=== PATIENT | female | born 1945 | race Caucasian/White ===

== ENCOUNTER 2020-02-26 16:23 | Inpatient (IN) ==
[2020-02-26 17:30] LABS: Basophils % 0.6 %; Eosinophils % 2.6 %; Hematocrit 39.3 % (35.3-44.9)
[2020-02-26 17:32] LABS: Eosinophils # 0.2 K/mcL (0.0-0.6); Hemoglobin 12.7 g/dL (11.5-15.4); Immature Granulocytes % 0.1 % (0-4); Immature Platelets 15.2 % (1.1-6.1); Lymphocytes # 1.8 K/mcL (0.6-4.6); Lymphocytes % 24.8 %; Mean Corpuscular HGB Conc 32.3 g/dL (31.6-35.5); Mean Corpuscular Hemoglobin 31.9 pg (28.0-33.3); Mean Corpuscular Volume 98.7 fL (83.0-100.0); Mean Platelet Volume 13.5 fL (9.4-12.4); Monocytes # 0.8 K/mcL (0.0-1.3); Platelet Count 149 K/mcL (140-400); Red Blood Count 3.98 M/mcL (3.82-4.97); Red Cell Distribution Width 14.6 % (11.5-14.5); Segmented Neutrophils % 60.9 %; White Blood Count 7.3 K/mcL (4.3-11.1)
[2020-02-26 17:54] LABS: Albumin/Globulin Ratio 1.1 (1.1-2.2); Bilirubin,Total 0.7 mg/dL (0.3-1.0); Calcium 9.4 mg/dL (8.6-10.3); Globulin 3.5 g/dL (2.4-3.5); Potassium 2.7 mEq/L (3.5-5.1); Total Protein 7.5 g/dL (6.4-8.9); Troponin I 0.03 ng/mL (< 0.04)
[2020-02-26] MEDS ORDERED: Potassium Chloride Elixir 20 MEQ/15 ML UDC PO ONE (18:00)
[2020-02-26] MEDS ORDERED: 0.9 % Sodium Chloride 1,000 ML IVC ONE (18:02)
[2020-02-26 18:11] LABS: Neutrophils # 4.5 K/mcL (1.6-8.9)
[2020-02-26 18:12] LABS: Platelet Estimate Normal (Normal)
[2020-02-26 19:15] LABS: Bacteria,Urine Few per hpf (None-Few); Bilirubin,Urine Small (Negative); Blood,Urine Moderate (Negative); Clarity,Urine Turbid (Clear); Color,Urine Yellow (Yellow); Glucose,Urine (UA) Normal (Normal); Hyaline Casts,Urine Moderate per lpf (None Seen); Ketones,Urine Negative (Negative); Leukocyte Esterase,Urine Moderate (Negative); Mucus,Urine Few per lpf (None-Few); Nitrite,Urine Negative (Negative); Protein,Urine >=300 mg/dL (Neg-Trace); RBC,Urine 0-3 per hpf (0-3); Specific Gravity,Urine 1.021 (1.010-1.025); Squamous Epithelial Cell,Urine Few per hpf (None-Few); Urobilinogen,Urine Normal (Normal); WBC,Urine 30-50 per hpf (0-3)
[2020-02-26 19:19] LABS: Sodium, Urine 31.2 mEq/L
[2020-02-26] MEDS ORDERED: Naloxone 0.4 MG/ML INJ IVP PRN (20:34)
[2020-02-26] MEDS ORDERED: cefTRIAXone 1,000 MG in Water for inj. (sterile) 10 ML IVP ONE (20:44)
[2020-02-26] MEDS ORDERED: 0.9 % Sodium Chloride 1,000 ML IVC SCH (20:45)
[2020-02-26 21:33] LABS: Influenza A PCR Negative (Negative); Influenza B PCR Negative (Negative); Resp. Syncytial Virus PCR Negative (Negative)
[2020-02-26 21:36] LABS: SARS-CoV-2 by PCR (In House) Negative (Negative)
[2020-02-27 05:23] LABS: Hemoglobin 10.4 g/dL (11.5-15.4); Immature Platelets 16.9 % (1.1-6.1); Mean Corpuscular HGB Conc 31.5 g/dL (31.6-35.5); Mean Corpuscular Hemoglobin 31.4 pg (28.0-33.3); Mean Corpuscular Volume 99.7 fL (83.0-100.0); Mean Platelet Volume 13.5 fL (9.4-12.4); Red Blood Count 3.31 M/mcL (3.82-4.97); Red Cell Distribution Width 14.5 % (11.5-14.5); White Blood Count 6.5 K/mcL (4.3-11.1)
[2020-02-27 05:51] LABS: Calcium 8.4 mg/dL (8.6-10.3); Potassium 3.6 mEq/L (3.5-5.1)
[2020-02-27] MEDS ORDERED: D5% in Water 1,000 ML IVC PRN (07:44)
[2020-02-27] MEDS ORDERED: Dextrose Gel 15 GM/37.5 ML TUBE PO PRN ×2 (07:44)
[2020-02-27] MEDS ORDERED: *HR* Dextrose 50 % in Water (Vial) 50 ML VIAL IVP PRN (07:44)
[2020-02-27] MEDS: *HR* Rivaroxaban 10 MG TABLET PO SCH (08:05)
[2020-02-27] MEDS: Aspirin 81 MG TAB.CHEW PO SCH (08:05)
[2020-02-27] MEDS ORDERED: Magnesium Sulfate 1 GM/102 ML PIGGYBACK IVPB ONE (08:19)
[2020-02-27] MEDS: Insulin LISPRO 300 UNITS/3 ML VIAL SUBQ SCH ×4 (08:49→20:15)
[2020-02-27] MEDS ORDERED: amLODIPine 5 MG TABLET PO SCH (09:00)
[2020-02-27 10:18] LABS: Estimated Average Glucose 148 mg/dl; Hemoglobin A1C 6.8 %
[2020-02-27] MEDS: 0.9 % Sodium Chloride 1,000 ML IVC SCH ×2 (11:04→18:53)
[2020-02-27 13:00] LABS: Hematocrit 36.9 % (35.3-44.9); Hemoglobin 11.4 g/dL (11.5-15.4)
[2020-02-27] MEDS: (Omeprazole 10 MG) PO SCH (15:19)
[2020-02-27] MEDS ORDERED: 0.9 % Sodium Chloride 500 ML IVC ONE (17:37)
[2020-02-27] MEDS: cefTRIAXone 1,000 MG in 0.9 % Sodium Chloride Mini Bag 100 ML IVPB SCH (20:24)
[2020-02-27] MEDS ORDERED: *HR* HYDROcodone/Acet 5/325 mg TABLET PO ONE (23:24)
[2020-02-28 02:12] LABS: Hemoglobin 10.2 g/dL (11.5-15.4)
[2020-02-28 02:14] LABS: Basophils % 0.5 %; Eosinophils # 0.1 K/mcL (0.0-0.6); Eosinophils % 1.6 %; Hematocrit 33.7 % (35.3-44.9); Immature Granulocytes % 0.4 % (0-4); Immature Platelets 14.4 % (1.1-6.1); Lymphocytes # 1.5 K/mcL (0.6-4.6); Lymphocytes % 19.6 %; Mean Corpuscular HGB Conc 30.3 g/dL (31.6-35.5); Mean Corpuscular Volume 102.4 fL (83.0-100.0); Mean Platelet Volume 13.3 fL (9.4-12.4); Monocytes # 0.8 K/mcL (0.0-1.3); Monocytes % 10.1 %; Platelet Count 107 K/mcL (140-400); Red Blood Count 3.29 M/mcL (3.82-4.97); Red Cell Distribution Width 14.6 % (11.5-14.5); Segmented Neutrophils % 67.8 %; White Blood Count 7.4 K/mcL (4.3-11.1)
[2020-02-28 02:30] LABS: Calcium 8.4 mg/dL (8.6-10.3); Magnesium 1.5 mg/dL (1.6-2.6); Potassium 3.6 mEq/L (3.5-5.1)
[2020-02-28] MEDS: 0.9 % Sodium Chloride 1,000 ML IVC SCH ×2 (06:05→18:07)
[2020-02-28] MEDS: Aspirin 81 MG TAB.CHEW PO SCH (07:42)
[2020-02-28] MEDS: *HR* Rivaroxaban 10 MG TABLET PO SCH (07:42)
[2020-02-28] MEDS: Cholecalciferol (D-3) 1,000 UNIT (25MCG) TABLET PO SCH (07:43)
[2020-02-28] MEDS: (Omeprazole 10 MG) PO SCH (07:58)
[2020-02-28] MEDS: (Ezetimibe [Zetia] 10 MG) PO SCH (07:58)
[2020-02-28] MEDS: Insulin LISPRO 300 UNITS/3 ML VIAL SUBQ SCH ×4 (07:58→19:37)
[2020-02-28] MEDS ORDERED: Metoprolol 100 MG TABLET PO SCH (09:00)
[2020-02-28] MEDS: cefTRIAXone 1,000 MG in 0.9 % Sodium Chloride Mini Bag 100 ML IVPB SCH (19:37)
[2020-02-29] MEDS: 0.9 % Sodium Chloride 1,000 ML IVC SCH ×2 (05:17→20:30)
[2020-02-29 08:26] LABS: Basophils % 0.5 %; Immature Granulocytes % 0.3 % (0-4); Red Cell Distribution Width 15.1 % (11.5-14.5)
[2020-02-29 08:28] LABS: Eosinophils # 0.2 K/mcL (0.0-0.6); Eosinophils % 2.5 %; Hematocrit 30.8 % (35.3-44.9); Hemoglobin 9.4 g/dL (11.5-15.4); Immature Platelets 15.7 % (1.1-6.1); Lymphocytes # 1.5 K/mcL (0.6-4.6); Lymphocytes % 24.7 %; Mean Corpuscular HGB Conc 30.5 g/dL (31.6-35.5); Mean Corpuscular Hemoglobin 31.1 pg (28.0-33.3); Mean Platelet Volume 13.7 fL (9.4-12.4); Monocytes # 0.6 K/mcL (0.0-1.3); Monocytes % 10.3 %; Red Blood Count 3.02 M/mcL (3.82-4.97); Segmented Neutrophils % 61.7 %; White Blood Count 5.9 K/mcL (4.3-11.1)
[2020-02-29 08:32] LABS: Neutrophils # 3.6 K/mcL (1.6-8.9); Platelet Count 93 K/mcL (140-400)
[2020-02-29 08:42] LABS: % Iron Saturation 28 % (15-50); Iron 60 mcg/dL (50-170); Transferrin 153 mg/dL (203-362)
[2020-02-29 08:45] LABS: Calcium 8.5 mg/dL (8.6-10.3); Magnesium 1.8 mg/dL (1.6-2.6); Potassium 3.5 mEq/L (3.5-5.1)
[2020-02-29] MEDS: Insulin LISPRO 300 UNITS/3 ML VIAL SUBQ SCH ×4 (09:08→21:06)
[2020-02-29] MEDS: Aspirin 81 MG TAB.CHEW PO SCH (09:09)
[2020-02-29] MEDS: Cholecalciferol (D-3) 1,000 UNIT (25MCG) TABLET PO SCH (09:09)
[2020-02-29] MEDS: *HR* Rivaroxaban 10 MG TABLET PO SCH (09:09)
[2020-02-29 09:15] LABS: Platelet Estimate Slight Decrease (Normal)
[2020-02-29] MEDS: (Ezetimibe [Zetia] 10 MG) PO SCH (12:22)
[2020-02-29] MEDS: (Omeprazole 10 MG) PO SCH (12:22)
[2020-02-29] MEDS ORDERED: Sodium Bicarbonate 150 MEQ in Water for inj. (sterile) 1,000 ML IVC SCH (13:30)
[2020-02-29] MEDS ORDERED: 0.9 % Sodium Chloride 1,000 ML IVC SCH (13:31)
[2020-02-29] MEDS: cefTRIAXone 1,000 MG in 0.9 % Sodium Chloride Mini Bag 100 ML IVPB SCH (19:58)
[2020-02-29] MEDS ORDERED: *HR* HYDROcodone/Acet 5/325 mg TABLET PO PRN (21:00)
[2020-03-01 04:00] LABS: Eosinophils % 3.1 %; Mean Platelet Volume 13.8 fL (9.4-12.4); Red Blood Count 2.94 M/mcL (3.82-4.97)
[2020-03-01 04:02] LABS: Basophils % 0.6 %; Eosinophils # 0.2 K/mcL (0.0-0.6); Hematocrit 29.8 % (35.3-44.9); Hemoglobin 9.3 g/dL (11.5-15.4); Immature Granulocytes % 0.4 % (0-4); Immature Platelets 13.5 % (1.1-6.1); Lymphocytes # 1.7 K/mcL (0.6-4.6); Lymphocytes % 31.9 %; Mean Corpuscular HGB Conc 31.2 g/dL (31.6-35.5); Mean Corpuscular Hemoglobin 31.6 pg (28.0-33.3); Mean Corpuscular Volume 101.4 fL (83.0-100.0); Monocytes # 0.6 K/mcL (0.0-1.3); Monocytes % 10.3 %; Neutrophils # 2.9 K/mcL (1.6-8.9); Red Cell Distribution Width 14.9 % (11.5-14.5); Segmented Neutrophils % 53.7 %; White Blood Count 5.4 K/mcL (4.3-11.1)
[2020-03-01 04:06] LABS: Platelet Count 90 K/mcL (140-400)
[2020-03-01 04:23] LABS: BUN/Creatinine Ratio 11 (6-26); Blood Urea Nitrogen 11 mg/dL (8-23); Calcium 8.6 mg/dL (8.6-10.3); Carbon Dioxide 23 mEq/L (23-29); Chloride 113 mEq/L (98-107); Glucose 86 mg/dL (70-105); Osmolality,Calculated 299 (280-300); Phosphorous 2.3 mg/dL (2.7-4.5); Potassium 3.2 mEq/L (3.5-5.1); Sodium 145 mEq/L (136-145); eGFR For African Americans > 60 (> 60); eGFR For Non-African Americans 56 (> 60)
[2020-03-01] MEDS ORDERED: Potassium Chloride 20 MEQ, Lidocaine 1% 2 ML in 0.9 % Sodium Chloride 250 ML IVPB ONE (07:26)
[2020-03-01] MEDS: Aspirin 81 MG TAB.CHEW PO SCH (08:49)
[2020-03-01] MEDS: Insulin LISPRO 300 UNITS/3 ML VIAL SUBQ SCH ×2 (08:53→11:52)
[2020-03-01] MEDS: Cholecalciferol (D-3) 1,000 UNIT (25MCG) TABLET PO SCH (08:53)
[2020-03-01] MEDS: (Omeprazole 10 MG) PO SCH (08:54)
[2020-03-01] MEDS: (Ezetimibe [Zetia] 10 MG) PO SCH (08:54)
[2020-03-01] MEDS ORDERED: *HR* Rivaroxaban 10 MG TABLET PO SCH (09:00)
[2020-03-01 10:54] VITALS: BP 104/56
[2020-03-01 13:14] LABS: Hematocrit 35.6 % (35.3-44.9); Hemoglobin 10.9 g/dL (11.5-15.4)
== END 2020-03-01 17:45 | disposition home health service (06) | DRG 469 ==
LOC: 3BNU 16:23 → EMEROOARM 16:23 → SUATTDRO 21:45 → 3BNU 22:30
PROVIDERS: ADMIT Student in an Organized Health Care Education/Training Program; ATTEND Internal Medicine

== ENCOUNTER 2020-03-21 12:11 | Observation (INO) ==
[2020-03-21 12:33] LABS: Mean Corpuscular HGB Conc 31.6 g/dL (31.6-35.5); Red Cell Distribution Width 16.5 % (11.5-14.5)
[2020-03-21 12:35] LABS: Basophils % 0.4 %; Eosinophils % 0.6 %; Hematocrit 37.3 % (35.3-44.9); Hemoglobin 11.8 g/dL (11.5-15.4); Immature Granulocytes % 0.7 % (0-4); Immature Platelets 13.5 % (1.1-6.1); Lymphocytes % 27.4 %; Mean Corpuscular Hemoglobin 31.8 pg (28.0-33.3); Mean Corpuscular Volume 100.5 fL (83.0-100.0); Mean Platelet Volume 13.2 fL (9.4-12.4); Monocytes # 0.8 K/mcL (0.0-1.3); Monocytes % 11.4 %; Neutrophils # 4.3 K/mcL (1.6-8.9); Platelet Count 115 K/mcL (140-400); Red Blood Count 3.71 M/mcL (3.82-4.97); Segmented Neutrophils % 59.5 %; White Blood Count 7.2 K/mcL (4.3-11.1)
[2020-03-21 12:52] LABS: Alanine Aminotransferase 13 Units/L (7-52); Albumin 3.6 g/dL (3.5-5.7); Alkaline Phosphatase 67 Units/L (34-104); Aspartate Amino Transferase 24 Units/L (13-39); BUN/Creatinine Ratio 21 (6-26); Bilirubin,Total 0.8 mg/dL (0.3-1.0); Blood Urea Nitrogen 25 mg/dL (8-23); Calcium 9.8 mg/dL (8.6-10.3); Carbon Dioxide 17 mEq/L (23-29); Chloride 106 mEq/L (98-107); Globulin 3.6 g/dL (2.4-3.5); Glucose 91 mg/dL (70-105); Osmolality,Calculated 298 (280-300); Potassium 3.6 mEq/L (3.5-5.1); Sodium 142 mEq/L (136-145); Total Protein 7.2 g/dL (6.4-8.9); Troponin I < 0.03 ng/mL (< 0.04); eGFR For African Americans 55 (> 60); eGFR For Non-African Americans 45 (> 60)
[2020-03-21 12:58] LABS: Basophilic Stippling 1+ (Not Present); Burr Cells 1+ (Not Present); Poikilocytosis 1+ (Not Present)
[2020-03-21 12:59] LABS: Large Platelets Present (Not Present)
[2020-03-21] MEDS ORDERED: 0.9 % Sodium Chloride 500 ML IVC ONE (13:32)
[2020-03-21 13:43] LABS: Bacteria,Urine Few per hpf (None-Few); Bilirubin,Urine Small (Negative); Blood,Urine Moderate (Negative); Clarity,Urine Clear (Clear); Color,Urine Yellow (Yellow); Glucose,Urine (UA) Normal (Normal); Hyaline Casts,Urine Many per lpf (None Seen); Ketones,Urine 80 mg/dL (Negative); Leukocyte Esterase,Urine Negative (Negative); Mucus,Urine Few per lpf (None-Few); Nitrite,Urine Negative (Negative); Protein,Urine 200 mg/dL (Neg-Trace); RBC,Urine 0-3 per hpf (0-3); Specific Gravity,Urine 1.024 (1.010-1.025); Squamous Epithelial Cell,Urine Moderate per hpf (None-Few)
[2020-03-21] MEDS ORDERED: Naloxone 0.4 MG/ML INJ IVP PRN (15:24)
[2020-03-21] MEDS: Ringers Solution, Lactated 1,000 ML IVC SCH (18:48)
[2020-03-21] MEDS ORDERED: D5% in Water 1,000 ML IVC PRN (20:37)
[2020-03-21] MEDS ORDERED: Dextrose Gel 15 GM/37.5 ML TUBE PO PRN ×2 (20:37)
[2020-03-21] MEDS ORDERED: *HR* Dextrose 50 % in Water (Vial) 50 ML VIAL IVP PRN (20:37)
[2020-03-21] MEDS: Ondansetron 4 MG/2 ML VIAL IVP PRN (23:55)
[2020-03-22 05:56] LABS: Hemoglobin 9.1 g/dL (11.5-15.4)
[2020-03-22 05:58] LABS: Hematocrit 28.6 % (35.3-44.9)
[2020-03-22 05:59] LABS: Mean Corpuscular HGB Conc 31.8 g/dL (31.6-35.5)
[2020-03-22] MEDS ORDERED: Pantoprazole 40 MG VIAL IVP SCH (06:00)
[2020-03-22 06:01] LABS: Basophils % 0.8 %; Eosinophils % 0.6 %; Hematocrit 28.6 % (35.3-44.9); Hemoglobin 9.1 g/dL (11.5-15.4); Immature Granulocytes % 0.4 % (0-4); Immature Platelets 13.4 % (1.1-6.1); Lymphocytes # 1.4 K/mcL (0.6-4.6); Mean Corpuscular Hemoglobin 31.7 pg (28.0-33.3); Mean Corpuscular Volume 99.7 fL (83.0-100.0); Mean Platelet Volume 13.7 fL (9.4-12.4); Monocytes # 0.7 K/mcL (0.0-1.3); Monocytes % 12.2 %; Neutrophils # 3.1 K/mcL (1.6-8.9); Red Blood Count 2.87 M/mcL (3.82-4.97); Red Cell Distribution Width 16.5 % (11.5-14.5); White Blood Count 5.3 K/mcL (4.3-11.1)
[2020-03-22 06:05] LABS: Platelet Count 82 K/mcL (140-400)
[2020-03-22 06:41] LABS: BUN/Creatinine Ratio 22 (6-26); Blood Urea Nitrogen 21 mg/dL (8-23); Calcium 8.5 mg/dL (8.6-10.3); Carbon Dioxide 20 mEq/L (23-29); Chloride 108 mEq/L (98-107); Glucose 104 mg/dL (70-105); Osmolality,Calculated 291 (280-300); Potassium 3.5 mEq/L (3.5-5.1); Sodium 139 mEq/L (136-145); eGFR For African Americans > 60 (> 60); eGFR For Non-African Americans 56 (> 60)
[2020-03-22 09:38] LABS: INR 1.2; Prothrombin Time 13.8 Seconds (9.4-12.1)
[2020-03-22 09:52] LABS: % Iron Saturation 35 % (15-50); Iron 71 mcg/dL (50-170); Transferrin 144 mg/dL (203-362)
[2020-03-22 10:11] LABS: Ferritin 177 ng/mL (10-120)
[2020-03-22 10:16] LABS: Folate 2.3 ng/mL (3.0-16.0)
[2020-03-22] MEDS: Pantoprazole 40 MG in 0.9 % Sodium Chloride Mini Bag 100 ML IVC SCH ×3 (10:35→21:18)
[2020-03-22] MEDS: Ringers Solution, Lactated 1,000 ML IVC SCH (10:36)
[2020-03-22 15:20] LABS: Hematocrit 29.7 % (35.3-44.9); Hemoglobin 9.5 g/dL (11.5-15.4)
[2020-03-22] MEDS: Ondansetron 4 MG/2 ML VIAL IVP PRN (16:24)
[2020-03-22] MEDS ORDERED: Ringers Solution, Lactated 500 ML IVC ONE (17:09)
[2020-03-23] MEDS: Ondansetron 4 MG/2 ML VIAL IVP PRN (02:35)
[2020-03-23] MEDS: Ringers Solution, Lactated 1,000 ML IVC SCH ×2 (02:36→16:30)
[2020-03-23] MEDS: Pantoprazole 40 MG in 0.9 % Sodium Chloride Mini Bag 100 ML IVC SCH ×3 (02:36→13:45)
[2020-03-23 03:59] LABS: Basophils % 0.5 %; Eosinophils # 0.1 K/mcL (0.0-0.6); Eosinophils % 0.9 %; Hematocrit 29.7 % (35.3-44.9); Hemoglobin 9.4 g/dL (11.5-15.4); Immature Granulocytes % 0.4 % (0-4); Immature Platelets 13.9 % (1.1-6.1); Lymphocytes # 1.2 K/mcL (0.6-4.6); Lymphocytes % 21.9 %; Mean Corpuscular HGB Conc 31.6 g/dL (31.6-35.5); Mean Corpuscular Hemoglobin 31.5 pg (28.0-33.3); Mean Corpuscular Volume 99.7 fL (83.0-100.0); Mean Platelet Volume 13.9 fL (9.4-12.4); Monocytes # 0.6 K/mcL (0.0-1.3); Monocytes % 11.2 %; Neutrophils # 3.7 K/mcL (1.6-8.9); Platelet Count 78 K/mcL (140-400); Red Blood Count 2.98 M/mcL (3.82-4.97); Red Cell Distribution Width 16.6 % (11.5-14.5); Segmented Neutrophils % 65.1 %; White Blood Count 5.6 K/mcL (4.3-11.1)
[2020-03-23 04:01] LABS: INR 1.2; Prothrombin Time 14.1 Seconds (9.4-12.1)
[2020-03-23 04:16] LABS: BUN/Creatinine Ratio 17 (6-26); Blood Urea Nitrogen 14 mg/dL (8-23); Calcium 8.6 mg/dL (8.6-10.3); Carbon Dioxide 22 mEq/L (23-29); Chloride 110 mEq/L (98-107); Glucose 82 mg/dL (70-105); Osmolality,Calculated 290 (280-300); Potassium 2.9 mEq/L (3.5-5.1); Sodium 140 mEq/L (136-145); eGFR For African Americans > 60 (> 60); eGFR For Non-African Americans > 60 (> 60)
[2020-03-23] MEDS ORDERED: Potassium Chloride 40 MEQ, Lidocaine 1% 2 ML in 0.9 % Sodium Chloride 500 ML IVPB ONE (07:46)
[2020-03-23] MEDS ORDERED: Lidocaine -MPF 2% 2 ML VIAL ONE (10:26)
[2020-03-23] MEDS ORDERED: *HR* Propofol 200 MG/20 ML VIAL IVP ONE (10:27)
[2020-03-23] MEDS: Pantoprazole 40 MG VIAL IVP SCH (18:02)
[2020-03-24 04:15] LABS: Basophils % 0.6 %; Eosinophils # 0.1 K/mcL (0.0-0.6); Eosinophils % 2.1 %; Hematocrit 27.3 % (35.3-44.9); Hemoglobin 8.7 g/dL (11.5-15.4); Immature Granulocytes % 0.6 % (0-4); Immature Platelets 14.2 % (1.1-6.1); Lymphocytes # 1.1 K/mcL (0.6-4.6); Lymphocytes % 22.2 %; Mean Corpuscular HGB Conc 31.9 g/dL (31.6-35.5); Mean Corpuscular Volume 100.4 fL (83.0-100.0); Monocytes # 0.5 K/mcL (0.0-1.3); Monocytes % 9.8 %; Neutrophils # 3.1 K/mcL (1.6-8.9); Red Blood Count 2.72 M/mcL (3.82-4.97); Red Cell Distribution Width 16.9 % (11.5-14.5); Segmented Neutrophils % 64.7 %; White Blood Count 4.8 K/mcL (4.3-11.1)
[2020-03-24 04:16] LABS: BUN/Creatinine Ratio 15 (6-26); Blood Urea Nitrogen 12 mg/dL (8-23); Calcium 8.4 mg/dL (8.6-10.3); Carbon Dioxide 24 mEq/L (23-29); Chloride 112 mEq/L (98-107); Glucose 80 mg/dL (70-105); Osmolality,Calculated 297 (280-300); Potassium 3.2 mEq/L (3.5-5.1); Sodium 144 mEq/L (136-145); eGFR For African Americans > 60 (> 60); eGFR For Non-African Americans > 60 (> 60)
[2020-03-24 04:21] LABS: Platelet Count 71 K/mcL (140-400)
[2020-03-24] MEDS: Ringers Solution, Lactated 1,000 ML IVC SCH ×2 (05:15→18:53)
[2020-03-24] MEDS: Pantoprazole 40 MG VIAL IVP SCH ×2 (05:16→17:48)
[2020-03-24] MEDS: Ondansetron 4 MG/2 ML VIAL IVP PRN (10:01)
[2020-03-24 12:57] LABS: Hematocrit 30.6 % (35.3-44.9); Hemoglobin 9.7 g/dL (11.5-15.4)
[2020-03-24] MEDS: Cyanocobalamin (B-12) 1,000 MCG TABLET PO SCH (17:48)
[2020-03-24] MEDS: Folic Acid 1 MG TABLET PO SCH (17:48)
[2020-03-24] MEDS ORDERED: *HR* HYDROcodone/Acet 5/325 mg TABLET PO PRN (19:52)
[2020-03-25 00:47] LABS: Mean Corpuscular Hemoglobin 30.9 pg (28.0-33.3)
[2020-03-25 00:49] LABS: Basophils % 0.7 %; Eosinophils # 0.2 K/mcL (0.0-0.6); Eosinophils % 2.5 %; Hematocrit 26.4 % (35.3-44.9); Hemoglobin 8.2 g/dL (11.5-15.4); Immature Granulocytes % 0.7 % (0-4); Immature Platelets 16.6 % (1.1-6.1); Lymphocytes # 1.4 K/mcL (0.6-4.6); Lymphocytes % 23.4 %; Mean Corpuscular HGB Conc 31.1 g/dL (31.6-35.5); Mean Corpuscular Volume 99.6 fL (83.0-100.0); Mean Platelet Volume 13.9 fL (9.4-12.4); Monocytes # 0.6 K/mcL (0.0-1.3); Monocytes % 9.5 %; Neutrophils # 3.7 K/mcL (1.6-8.9); Red Blood Count 2.65 M/mcL (3.82-4.97); Red Cell Distribution Width 17.1 % (11.5-14.5); Segmented Neutrophils % 63.2 %; White Blood Count 5.9 K/mcL (4.3-11.1)
[2020-03-25 00:51] LABS: Platelet Count 64 K/mcL (140-400)
[2020-03-25 01:06] LABS: BUN/Creatinine Ratio 14 (6-26); Blood Urea Nitrogen 11 mg/dL (8-23); Calcium 8.3 mg/dL (8.6-10.3); Carbon Dioxide 23 mEq/L (23-29); Chloride 110 mEq/L (98-107); Glucose 77 mg/dL (70-105); Osmolality,Calculated 292 (280-300); Potassium 3.3 mEq/L (3.5-5.1); Sodium 142 mEq/L (136-145); eGFR For African Americans > 60 (> 60); eGFR For Non-African Americans > 60 (> 60)
[2020-03-25] MEDS: Pantoprazole 40 MG VIAL IVP SCH ×2 (05:36→17:30)
[2020-03-25] MEDS: Cyanocobalamin (B-12) 1,000 MCG TABLET PO SCH (07:46)
[2020-03-25] MEDS: Folic Acid 1 MG TABLET PO SCH (07:46)
[2020-03-25] MEDS: Ringers Solution, Lactated 1,000 ML IVC SCH ×4 (07:47→22:39)
[2020-03-25 10:54] LABS: Hematocrit 28.1 % (35.3-44.9); Hemoglobin 8.7 g/dL (11.5-15.4)
[2020-03-25] MEDS: Ondansetron 4 MG/2 ML VIAL IVP PRN (11:54)
[2020-03-25] MEDS: *HR* Rivaroxaban 10 MG TABLET PO SCH (13:12)
[2020-03-25] MEDS: Aspirin 81 MG TAB.CHEW PO SCH (13:13)
[2020-03-25] MEDS: Pantoprazole 40 MG in 0.9 % Sodium Chloride Mini Bag 100 ML IVC SCH (22:39)
[2020-03-26 05:08] LABS: Red Cell Distribution Width 17.2 % (11.5-14.5)
[2020-03-26 05:10] LABS: Hematocrit 27.3 % (35.3-44.9); Hemoglobin 8.4 g/dL (11.5-15.4); Immature Platelets 18.5 % (1.1-6.1); Mean Corpuscular HGB Conc 30.8 g/dL (31.6-35.5); Mean Corpuscular Hemoglobin 30.8 pg (28.0-33.3); Mean Platelet Volume 13.7 fL (9.4-12.4); Red Blood Count 2.73 M/mcL (3.82-4.97); White Blood Count 6.3 K/mcL (4.3-11.1)
[2020-03-26] MEDS: Pantoprazole 40 MG VIAL IVP SCH (05:20)
[2020-03-26] MEDS: Ringers Solution, Lactated 1,000 ML IVC SCH (05:20)
[2020-03-26 05:29] LABS: BUN/Creatinine Ratio 13 (6-26); Blood Urea Nitrogen 9 mg/dL (8-23); Calcium 8.5 mg/dL (8.6-10.3); Carbon Dioxide 26 mEq/L (23-29); Chloride 110 mEq/L (98-107); Glucose 85 mg/dL (70-105); Osmolality,Calculated 292 (280-300); Potassium 3.4 mEq/L (3.5-5.1); Sodium 142 mEq/L (136-145); eGFR For African Americans > 60 (> 60); eGFR For Non-African Americans > 60 (> 60)
[2020-03-26 07:11] VITALS: BP 130/85
[2020-03-26] MEDS: *HR* Rivaroxaban 10 MG TABLET PO SCH (07:51)
[2020-03-26] MEDS: Folic Acid 1 MG TABLET PO SCH (07:51)
[2020-03-26] MEDS: Aspirin 81 MG TAB.CHEW PO SCH (07:51)
[2020-03-26] MEDS: Cyanocobalamin (B-12) 1,000 MCG TABLET PO SCH (07:51)
[2020-03-26] MEDS: Potassium Chloride Elixir 20 MEQ/15 ML UDC PO ONE ×2 (07:57→09:49)
[2020-03-26] MEDS ORDERED: Ondansetron ODT 4 MG TAB.RAPDIS SL PRN (08:05)
[2020-03-26 08:11] LABS: Magnesium 1.6 mg/dL (1.6-2.6); Phosphorous 1.7 mg/dL (2.7-4.5)
== END 2020-03-26 13:02 | disposition home health service (06) ==
LOC: 3ANU 12:11 → EMEROOARM 12:11 → SUATTDRO 15:27 → 3ANU 16:42
PROVIDERS: ADMIT Internal Medicine; ATTEND Family Medicine

== ENCOUNTER 2020-04-06 12:54 | Observation (INO) ==
[2020-04-06 13:52] LABS: Basophils % 0.3 %; Eosinophils # 0.1 K/mcL (0.0-0.6); Eosinophils % 1.5 %; Hematocrit 31.2 % (35.3-44.9); Hemoglobin 9.9 g/dL (11.5-15.4); Immature Granulocytes % 0.8 % (0-4); Lymphocytes # 0.6 K/mcL (0.6-4.6); Lymphocytes % 9.6 %; Mean Corpuscular HGB Conc 31.7 g/dL (31.6-35.5); Mean Corpuscular Hemoglobin 30.9 pg (28.0-33.3); Mean Corpuscular Volume 97.5 fL (83.0-100.0); Mean Platelet Volume 12.1 fL (9.4-12.4); Monocytes # 0.6 K/mcL (0.0-1.3); Monocytes % 9.3 %; Neutrophils # 5.1 K/mcL (1.6-8.9); Platelet Count 169 K/mcL (140-400); Segmented Neutrophils % 78.5 %; White Blood Count 6.5 K/mcL (4.3-11.1)
[2020-04-06 14:12] LABS: Bacteria,Urine Many per hpf (None-Few); Bilirubin,Urine Small (Negative); Blood,Urine Moderate (Negative); Clarity,Urine Ex.Turbid (Clear); Color,Urine Dark-Orange (Yellow); Glucose,Urine (UA) Normal (Normal); Ketones,Urine 80 mg/dL (Negative); Leukocyte Esterase,Urine Large (Negative); Mucus,Urine Few per lpf (None-Few); Nitrite,Urine Negative (Negative); PH,Urine 6.5 pH Units (5.0-8.0); Protein,Urine 200 mg/dL (Neg-Trace); RBC,Urine 30-50 per hpf (0-3); Specific Gravity,Urine 1.021 (1.010-1.025); Squamous Epithelial Cell,Urine Few per hpf (None-Few); Urobilinogen,Urine >=8.0 mg/dL (Normal); WBC,Urine TNTC per hpf (0-3)
[2020-04-06] MEDS ORDERED: cefTRIAXone 1,000 MG in 0.9 % Sodium Chloride Mini Bag 100 ML IVPB ONE (14:13)
[2020-04-06 14:21] LABS: Activated Partial Thrombo Time 23.1 Seconds (26.0-36.0); INR 1.7; Prothrombin Time 19.3 Seconds (9.4-12.1)
[2020-04-06 14:33] LABS: Alanine Aminotransferase 7 Units/L (7-52); Albumin 3.1 g/dL (3.5-5.7); Albumin/Globulin Ratio 1.1 (1.1-2.2); Alkaline Phosphatase 49 Units/L (34-104); Aspartate Amino Transferase 15 Units/L (13-39); BUN/Creatinine Ratio 20 (6-26); Bilirubin,Direct 0.2 mg/dL (0.0-0.2); Bilirubin,Indirect 0.6 mg/dL (0.0-1.0); Bilirubin,Total 0.8 mg/dL (0.3-1.0); Blood Urea Nitrogen 14 mg/dL (8-23); Calcium 8.5 mg/dL (8.6-10.3); Carbon Dioxide 21 mEq/L (23-29); Chloride 101 mEq/L (98-107); Globulin 2.7 g/dL (2.4-3.5); Glucose 119 mg/dL (70-105); Lipase 54 Units/L (11-82); Osmolality,Calculated 294 (280-300); Potassium 2.7 mEq/L (3.5-5.1); Sodium 141 mEq/L (136-145); Total Protein 5.8 g/dL (6.4-8.9); eGFR For African Americans > 60 (> 60); eGFR For Non-African Americans > 60 (> 60)
[2020-04-06] MEDS ORDERED: Potassium Chloride 40 MEQ, Lidocaine 1% 2 ML in 0.9 % Sodium Chloride 500 ML IVPB ONE (15:04)
[2020-04-06] MEDS ORDERED: Dextrose Gel 15 GM/37.5 ML TUBE PO PRN ×2 (16:04)
[2020-04-06] MEDS ORDERED: Naloxone 0.4 MG/ML INJ IVP PRN (16:04)
[2020-04-06] MEDS ORDERED: D5% in Water 1,000 ML IVC PRN (16:04)
[2020-04-06] MEDS ORDERED: *HR* Dextrose 50 % in Water (Vial) 50 ML VIAL IVP PRN (16:04)
[2020-04-06] MEDS ORDERED: 0.9 % Sodium Chloride 1,000 ML IVC SCH ×2 (16:15→21:00)
[2020-04-06] MEDS: carvediloL 25 MG TABLET PO SCH (16:26)
[2020-04-06] MEDS: Insulin LISPRO 300 UNITS/3 ML VIAL SUBQ SCH ×2 (16:46→21:42)
[2020-04-06] MEDS: *HR* HYDROcodone/Acet 5/325 mg TABLET PO PRN (22:37)
[2020-04-07] MEDS: Ondansetron 4 MG/2 ML VIAL IVP PRN (03:26)
[2020-04-07 04:37] LABS: Basophils % 0.3 %; Eosinophils % 0.7 %; Hematocrit 30.2 % (35.3-44.9); Hemoglobin 9.6 g/dL (11.5-15.4); Immature Granulocytes % 0.8 % (0-4); Lymphocytes # 0.7 K/mcL (0.6-4.6); Lymphocytes % 12.1 %; Mean Corpuscular HGB Conc 31.8 g/dL (31.6-35.5); Mean Corpuscular Hemoglobin 31.4 pg (28.0-33.3); Mean Corpuscular Volume 98.7 fL (83.0-100.0); Mean Platelet Volume 12.5 fL (9.4-12.4); Monocytes # 0.8 K/mcL (0.0-1.3); Monocytes % 12.3 %; Neutrophils # 4.5 K/mcL (1.6-8.9); Platelet Count 166 K/mcL (140-400); Red Blood Count 3.06 M/mcL (3.82-4.97); Red Cell Distribution Width 17.3 % (11.5-14.5); Segmented Neutrophils % 73.8 %; White Blood Count 6.1 K/mcL (4.3-11.1)
[2020-04-07 05:00] LABS: Alanine Aminotransferase 6 Units/L (7-52); Albumin 3.1 g/dL (3.5-5.7); Albumin/Globulin Ratio 1.2 (1.1-2.2); Alkaline Phosphatase 45 Units/L (34-104); Aspartate Amino Transferase 12 Units/L (13-39); BUN/Creatinine Ratio 23 (6-26); Bilirubin,Total 0.6 mg/dL (0.3-1.0); Blood Urea Nitrogen 15 mg/dL (8-23); Calcium 8.1 mg/dL (8.6-10.3); Carbon Dioxide 22 mEq/L (23-29); Chloride 105 mEq/L (98-107); Globulin 2.5 g/dL (2.4-3.5); Glucose 88 mg/dL (70-105); Osmolality,Calculated 294 (280-300); Potassium 3.1 mEq/L (3.5-5.1); Sodium 142 mEq/L (136-145); Total Protein 5.6 g/dL (6.4-8.9); eGFR For African Americans > 60 (> 60); eGFR For Non-African Americans > 60 (> 60)
[2020-04-07] MEDS ORDERED: Potassium Effervescent 25 MEQ TABLET.EFF PO ONE (07:23)
[2020-04-07] MEDS: Insulin LISPRO 300 UNITS/3 ML VIAL SUBQ SCH ×4 (08:24→20:27)
[2020-04-07] MEDS: carvediloL 25 MG TABLET PO SCH ×2 (09:01→17:11)
[2020-04-07] MEDS: Aspirin 81 MG TAB.CHEW PO SCH (09:03)
[2020-04-07] MEDS: Cholecalciferol (D-3) 1,000 UNIT (25MCG) TABLET PO SCH (09:03)
[2020-04-07] MEDS: Cyanocobalamin (B-12) 1,000 MCG TABLET PO SCH (09:03)
[2020-04-07] MEDS: *HR* Rivaroxaban 10 MG TABLET PO SCH (09:18)
[2020-04-07] MEDS: cefTRIAXone 1,000 MG in Water for inj. (sterile) 10 ML IVP SCH (15:49)
[2020-04-07] MEDS: Megestrol Acetate 400 MG/10 ML UDC PO SCH (17:25)
[2020-04-07] MEDS ORDERED: NON-FORMULARY MEDICATION 1 EACH EACH (Ezetimibe [Zetia] 10 MG Tablet) PO SCH (18:00)
[2020-04-07] MEDS: *HR* HYDROcodone/Acet 5/325 mg TABLET PO PRN (19:40)
[2020-04-08] MEDS: Ondansetron 4 MG/2 ML VIAL IVP PRN (01:04)
[2020-04-08] MEDS: *HR* HYDROcodone/Acet 5/325 mg TABLET PO PRN ×2 (01:43→19:40)
[2020-04-08 05:24] LABS: Basophils % 0.6 %; Eosinophils # 0.2 K/mcL (0.0-0.6); Eosinophils % 2.8 %; Hematocrit 27.2 % (35.3-44.9); Hemoglobin 8.6 g/dL (11.5-15.4); Immature Granulocytes % 0.4 % (0-4); Lymphocytes # 1.1 K/mcL (0.6-4.6); Lymphocytes % 21.4 %; Mean Corpuscular HGB Conc 31.6 g/dL (31.6-35.5); Mean Corpuscular Hemoglobin 31.4 pg (28.0-33.3); Mean Corpuscular Volume 99.3 fL (83.0-100.0); Mean Platelet Volume 12.8 fL (9.4-12.4); Monocytes # 0.6 K/mcL (0.0-1.3); Monocytes % 11.4 %; Neutrophils # 3.4 K/mcL (1.6-8.9); Platelet Count 134 K/mcL (140-400); Red Blood Count 2.74 M/mcL (3.82-4.97); Red Cell Distribution Width 17.9 % (11.5-14.5); Segmented Neutrophils % 63.4 %; White Blood Count 5.3 K/mcL (4.3-11.1)
[2020-04-08 05:43] LABS: BUN/Creatinine Ratio 27 (6-26); Blood Urea Nitrogen 16 mg/dL (8-23); Carbon Dioxide 25 mEq/L (23-29); Chloride 107 mEq/L (98-107); Glucose 76 mg/dL (70-105); Osmolality,Calculated 294 (280-300); Potassium 3.2 mEq/L (3.5-5.1); Sodium 142 mEq/L (136-145); eGFR For African Americans > 60 (> 60); eGFR For Non-African Americans > 60 (> 60)
[2020-04-08] MEDS ORDERED: Potassium Effervescent 25 MEQ TABLET.EFF PO ONE (07:43)
[2020-04-08] MEDS: carvediloL 25 MG TABLET PO SCH ×2 (08:07→16:30)
[2020-04-08] MEDS: Insulin LISPRO 300 UNITS/3 ML VIAL SUBQ SCH ×4 (08:11→21:27)
[2020-04-08] MEDS: Cyanocobalamin (B-12) 1,000 MCG TABLET PO SCH (08:41)
[2020-04-08] MEDS: *HR* Rivaroxaban 10 MG TABLET PO SCH (08:41)
[2020-04-08] MEDS: Folic Acid 1 MG TABLET PO SCH (08:41)
[2020-04-08] MEDS: Aspirin 81 MG TAB.CHEW PO SCH (08:41)
[2020-04-08] MEDS: Megestrol Acetate 400 MG/10 ML UDC PO SCH (08:41)
[2020-04-08] MEDS: Cholecalciferol (D-3) 1,000 UNIT (25MCG) TABLET PO SCH (08:41)
[2020-04-08] MEDS: cefTRIAXone 1,000 MG in Water for inj. (sterile) 10 ML IVP SCH (15:15)
[2020-04-08] MEDS: Acetaminophen 325 MG TABLET PO PRN (18:52)
[2020-04-09] MEDS: *HR* HYDROcodone/Acet 5/325 mg TABLET PO PRN ×2 (01:45→19:35)
[2020-04-09] MEDS: Ondansetron 4 MG/2 ML VIAL IVP PRN (04:26)
[2020-04-09] MEDS: Megestrol Acetate 400 MG/10 ML UDC PO SCH (08:26)
[2020-04-09] MEDS: carvediloL 25 MG TABLET PO SCH ×2 (08:27→18:09)
[2020-04-09] MEDS: Aspirin 81 MG TAB.CHEW PO SCH (08:27)
[2020-04-09] MEDS: *HR* Rivaroxaban 10 MG TABLET PO SCH (08:28)
[2020-04-09] MEDS: Cholecalciferol (D-3) 1,000 UNIT (25MCG) TABLET PO SCH (08:28)
[2020-04-09] MEDS: Folic Acid 1 MG TABLET PO SCH (08:29)
[2020-04-09] MEDS: Cyanocobalamin (B-12) 1,000 MCG TABLET PO SCH (08:29)
[2020-04-09 08:35] LABS: Basophils % 0.5 %; Eosinophils # 0.3 K/mcL (0.0-0.6); Eosinophils % 4.5 %; Hematocrit 31.9 % (35.3-44.9); Immature Granulocytes % 0.6 % (0-4); Lymphocytes # 0.8 K/mcL (0.6-4.6); Lymphocytes % 12.5 %; Mean Corpuscular HGB Conc 31.3 g/dL (31.6-35.5); Mean Corpuscular Hemoglobin 31.2 pg (28.0-33.3); Mean Corpuscular Volume 99.4 fL (83.0-100.0); Mean Platelet Volume 12.5 fL (9.4-12.4); Monocytes # 0.8 K/mcL (0.0-1.3); Monocytes % 11.6 %; Neutrophils # 4.7 K/mcL (1.6-8.9); Platelet Count 145 K/mcL (140-400); Red Blood Count 3.21 M/mcL (3.82-4.97); Red Cell Distribution Width 17.5 % (11.5-14.5); Segmented Neutrophils % 70.3 %; White Blood Count 6.7 K/mcL (4.3-11.1)
[2020-04-09] MEDS: Insulin LISPRO 300 UNITS/3 ML VIAL SUBQ SCH ×4 (08:36→20:43)
[2020-04-09 10:52] LABS: BUN/Creatinine Ratio 22 (6-26); Blood Urea Nitrogen 14 mg/dL (8-23); Calcium 8.3 mg/dL (8.6-10.3); Carbon Dioxide 24 mEq/L (23-29); Chloride 104 mEq/L (98-107); Glucose 89 mg/dL (70-105); Osmolality,Calculated 286 (280-300); Potassium 3.8 mEq/L (3.5-5.1); Sodium 138 mEq/L (136-145); eGFR For African Americans > 60 (> 60); eGFR For Non-African Americans > 60 (> 60)
[2020-04-09] MEDS: cefTRIAXone 1,000 MG in Water for inj. (sterile) 10 ML IVP SCH (14:38)
[2020-04-09] MEDS ORDERED: Ondansetron ODT 4 MG TAB.RAPDIS SL ONE (14:45)
[2020-04-10 00:41] LABS: INR 1.9
[2020-04-10 00:42] LABS: Basophils % 0.6 %; Eosinophils # 0.3 K/mcL (0.0-0.6); Eosinophils % 4.3 %; Hematocrit 28.6 % (35.3-44.9); Hemoglobin 9.1 g/dL (11.5-15.4); Immature Granulocytes % 0.6 % (0-4); Lymphocytes # 1.2 K/mcL (0.6-4.6); Mean Corpuscular HGB Conc 31.8 g/dL (31.6-35.5); Mean Corpuscular Hemoglobin 31.2 pg (28.0-33.3); Mean Corpuscular Volume 97.9 fL (83.0-100.0); Mean Platelet Volume 12.5 fL (9.4-12.4); Monocytes # 0.8 K/mcL (0.0-1.3); Monocytes % 12.2 %; Platelet Count 133 K/mcL (140-400); Red Blood Count 2.92 M/mcL (3.82-4.97); Red Cell Distribution Width 17.4 % (11.5-14.5); Segmented Neutrophils % 63.3 %; White Blood Count 6.3 K/mcL (4.3-11.1)
[2020-04-10 00:47] LABS: BUN/Creatinine Ratio 19 (6-26); Blood Urea Nitrogen 13 mg/dL (8-23); Calcium 8.4 mg/dL (8.6-10.3); Carbon Dioxide 22 mEq/L (23-29); Chloride 106 mEq/L (98-107); Glucose 78 mg/dL (70-105); Osmolality,Calculated 287 (280-300); Potassium 3.9 mEq/L (3.5-5.1); Sodium 139 mEq/L (136-145); eGFR For African Americans > 60 (> 60); eGFR For Non-African Americans > 60 (> 60)
[2020-04-10] MEDS: *HR* HYDROcodone/Acet 5/325 mg TABLET PO PRN ×3 (01:37→22:02)
[2020-04-10] MEDS: Insulin LISPRO 300 UNITS/3 ML VIAL SUBQ SCH ×4 (07:58→21:47)
[2020-04-10] MEDS: Aspirin 81 MG TAB.CHEW PO SCH (08:06)
[2020-04-10] MEDS: Cholecalciferol (D-3) 1,000 UNIT (25MCG) TABLET PO SCH (08:58)
[2020-04-10] MEDS: carvediloL 25 MG TABLET PO SCH ×2 (08:59→17:21)
[2020-04-10] MEDS: Megestrol Acetate 400 MG/10 ML UDC PO SCH (09:00)
[2020-04-10] MEDS: Folic Acid 1 MG TABLET PO SCH (09:01)
[2020-04-10] MEDS: Cyanocobalamin (B-12) 1,000 MCG TABLET PO SCH (09:01)
[2020-04-10] MEDS: *HR* Heparin 5,000 UNIT/ML VIAL SQ SCH ×2 (14:57→21:47)
[2020-04-10] MEDS: cefTRIAXone 1,000 MG in Water for inj. (sterile) 10 ML IVP SCH (14:58)
[2020-04-11] MEDS: Ondansetron 4 MG/2 ML VIAL IVP PRN ×2 (01:06→09:24)
[2020-04-11] MEDS: *HR* Heparin 5,000 UNIT/ML VIAL SQ SCH ×3 (05:21→20:37)
[2020-04-11] MEDS: Insulin LISPRO 300 UNITS/3 ML VIAL SUBQ SCH ×4 (07:59→20:36)
[2020-04-11] MEDS: Cyanocobalamin (B-12) 1,000 MCG TABLET PO SCH (09:19)
[2020-04-11] MEDS: Aspirin 81 MG TAB.CHEW PO SCH (09:19)
[2020-04-11] MEDS: Folic Acid 1 MG TABLET PO SCH (09:19)
[2020-04-11] MEDS: Cholecalciferol (D-3) 1,000 UNIT (25MCG) TABLET PO SCH (09:19)
[2020-04-11] MEDS: carvediloL 25 MG TABLET PO SCH ×2 (09:20→17:41)
[2020-04-11] MEDS: cefTRIAXone 1,000 MG in Water for inj. (sterile) 10 ML IVP SCH (15:52)
[2020-04-11] MEDS: *HR* HYDROcodone/Acet 5/325 mg TABLET PO PRN (20:36)
[2020-04-12] MEDS: *HR* Heparin 5,000 UNIT/ML VIAL SQ SCH ×3 (05:35→20:02)
[2020-04-12] MEDS: Insulin LISPRO 300 UNITS/3 ML VIAL SUBQ SCH ×4 (08:34→20:08)
[2020-04-12] MEDS: Ondansetron 4 MG/2 ML VIAL IVP PRN ×2 (08:51→20:02)
[2020-04-12] MEDS: Aspirin 81 MG TAB.CHEW PO SCH (08:51)
[2020-04-12] MEDS: carvediloL 6.25 MG TABLET PO SCH ×2 (08:51→16:34)
[2020-04-12] MEDS: Folic Acid 1 MG TABLET PO SCH (08:51)
[2020-04-12] MEDS: Cholecalciferol (D-3) 1,000 UNIT (25MCG) TABLET PO SCH (08:51)
[2020-04-12] MEDS: Cyanocobalamin (B-12) 1,000 MCG TABLET PO SCH (08:52)
[2020-04-12] MEDS: Potassium Chloride Elixir 20 MEQ/15 ML UDC PO SCH (08:52)
[2020-04-12] MEDS: cefTRIAXone 1,000 MG in Water for inj. (sterile) 10 ML IVP SCH (14:49)
[2020-04-12] MEDS: Acetaminophen 325 MG TABLET PO PRN (23:55)
[2020-04-13] MEDS: *HR* Heparin 5,000 UNIT/ML VIAL SQ SCH (06:30)
[2020-04-13 07:00] VITALS: BP 103/65
[2020-04-13] MEDS: Cholecalciferol (D-3) 1,000 UNIT (25MCG) TABLET PO SCH (08:06)
[2020-04-13] MEDS: Aspirin 81 MG TAB.CHEW PO SCH (08:06)
[2020-04-13] MEDS: carvediloL 6.25 MG TABLET PO SCH (08:06)
[2020-04-13] MEDS: Cyanocobalamin (B-12) 1,000 MCG TABLET PO SCH (08:07)
[2020-04-13] MEDS: Insulin LISPRO 300 UNITS/3 ML VIAL SUBQ SCH ×2 (08:07→12:32)
[2020-04-13] MEDS: Folic Acid 1 MG TABLET PO SCH (08:07)
[2020-04-13] MEDS: Potassium Chloride Elixir 20 MEQ/15 ML UDC PO SCH (08:07)
== END 2020-04-13 14:04 | disposition home health service (06) ==
LOC: 3ANU 12:54 → EMEROOARM 12:54 → SUATTDRO 14:48 → 3ANU 15:40
PROVIDERS: ADMIT Internal Medicine; ATTEND Student in an Organized Health Care Education/Training Program

== ENCOUNTER 2020-04-18 13:59 | Inpatient (IN) ==
[2020-04-18] MEDS ORDERED: 0.9 % Sodium Chloride 1,000 ML IVC ONE (14:07)
[2020-04-18] MEDS ORDERED: Ondansetron 4 MG/2 ML VIAL IVP ONE (14:10)
[2020-04-18 14:55] LABS: Basophils # 0.1 K/mcL (0.0-0.2); Basophils % 0.5 %; Eosinophils # 0.1 K/mcL (0.0-0.6); Eosinophils % 0.5 %; Hematocrit 37.6 % (35.3-44.9); Hemoglobin 12.2 g/dL (11.5-15.4); Immature Granulocytes % 0.6 % (0-4); Lymphocytes # 0.8 K/mcL (0.6-4.6); Lymphocytes % 6.9 %; Mean Corpuscular HGB Conc 32.4 g/dL (31.6-35.5); Mean Corpuscular Volume 95.7 fL (83.0-100.0); Mean Platelet Volume 12.9 fL (9.4-12.4); Monocytes % 8.7 %; Neutrophils # 9.1 K/mcL (1.6-8.9); Nucleated Red Blood Cells 0.2 /100 WBC (0); Platelet Count 130 K/mcL (140-400); Red Blood Count 3.93 M/mcL (3.82-4.97); Red Cell Distribution Width 17.4 % (11.5-14.5); Segmented Neutrophils % 82.8 %
[2020-04-18 15:03] LABS: INR 1.5; Prothrombin Time 16.8 Seconds (9.4-12.1)
[2020-04-18] MEDS ORDERED: levoFLOXacin 750 MG/150 ML 750 MG/150 ML BAG IVPB ONE (15:08)
[2020-04-18 15:21] LABS: Alanine Aminotransferase 8 Units/L (7-52); Albumin 3.5 g/dL (3.5-5.7); Albumin/Globulin Ratio 1.1 (1.1-2.2); Alkaline Phosphatase 56 Units/L (34-104); Aspartate Amino Transferase 14 Units/L (13-39); BUN/Creatinine Ratio 23 (6-26); Bilirubin,Direct 0.3 mg/dL (0.0-0.2); Bilirubin,Indirect 0.6 mg/dL (0.0-1.0); Bilirubin,Total 0.9 mg/dL (0.3-1.0); Blood Urea Nitrogen 27 mg/dL (8-23); Calcium 9.5 mg/dL (8.6-10.3); Carbon Dioxide 17 mEq/L (23-29); Chloride 103 mEq/L (98-107); Globulin 3.2 g/dL (2.4-3.5); Glucose 159 mg/dL (70-105); Magnesium 1.7 mg/dL (1.6-2.6); Osmolality,Calculated 306 (280-300); Phosphorous 2.2 mg/dL (2.7-4.5); Potassium 2.9 mEq/L (3.5-5.1); Sodium 144 mEq/L (136-145); Total Protein 6.7 g/dL (6.4-8.9); Troponin I 0.07 ng/mL (< 0.04); eGFR For African Americans 55 (> 60); eGFR For Non-African Americans 45 (> 60)
[2020-04-18 15:23] LABS: Activated Partial Thrombo Time 20.3 Seconds (26.0-36.0)
[2020-04-18 15:31] LABS: Bilirubin,Urine Small (Negative); Blood,Urine Moderate (Negative); Clarity,Urine Turbid (Clear); Color,Urine Yellow (Yellow); Glucose,Urine (UA) Normal (Normal); Ketones,Urine 40 mg/dL (Negative); Leukocyte Esterase,Urine Negative (Negative); Mucus,Urine Many per lpf (None-Few); Nitrite,Urine Negative (Negative); PH,Urine 6.5 pH Units (5.0-8.0); Protein,Urine >=300 mg/dL (Neg-Trace); RBC,Urine 30-50 per hpf (0-3); Renal Epithelial Cells,Urine Few per hpf (None-Few); Specific Gravity,Urine 1.025 (1.010-1.025); Squamous Epithelial Cell,Urine Moderate per hpf (None-Few); WBC,Urine 15-30 per hpf (0-3)
[2020-04-18] MEDS ORDERED: Naloxone 0.4 MG/ML INJ IVP PRN (16:37)
[2020-04-18] MEDS ORDERED: Ondansetron 4 MG/2 ML VIAL IVP PRN (16:37)
[2020-04-18] MEDS ORDERED: Melatonin 3 MG TABLET PO PRN (16:37)
[2020-04-18 17:46] LABS: Acetaminophen < 10 mcg/mL (10-20); Salicylate < 2.5 mg/dL (15.0-30.0); Thyroid Stimulating Hormone 0.458 mcIU/mL (0.340-5.600)
[2020-04-18] MEDS: cefTRIAXone 2,000 MG in Water for inj. (sterile) 20 ML IVP SCH (17:54)
[2020-04-18] MEDS: 0.9 % Sodium Chloride w KCl 20 MEQ/1,000 ML MLS IVC SCH (17:56)
[2020-04-18 18:38] LABS: VBG HCO3 23 mEq/L (21-27); VBG PCO2 45 mmHg (41-51); VBG PH 7.31 pH Units (7.32-7.42); VBG PO2 29 mmHg (25-50)
[2020-04-18] MEDS: Metoclopramide 10 MG/2 ML VIAL IVP SCH (20:30)
[2020-04-18] MEDS ORDERED: Potassium Phosphate 44 MEQ in 0.9 % Sodium Chloride 250 ML IVPB ONE (22:00)
[2020-04-19] MEDS: 0.9 % Sodium Chloride w KCl 20 MEQ/1,000 ML MLS IVC SCH (03:35)
[2020-04-19 06:05] LABS: Red Blood Count 3.24 M/mcL (3.82-4.97); Segmented Neutrophils % 79.1 %
[2020-04-19 06:07] LABS: Basophils % 0.2 %; Hematocrit 31.6 % (35.3-44.9); Immature Granulocytes % 0.5 % (0-4); Immature Platelets 11.8 % (1.1-6.1); Lymphocytes # 0.8 K/mcL (0.6-4.6); Lymphocytes % 8.6 %; Mean Corpuscular HGB Conc 31.6 g/dL (31.6-35.5); Mean Corpuscular Hemoglobin 30.9 pg (28.0-33.3); Mean Corpuscular Volume 97.5 fL (83.0-100.0); Mean Platelet Volume 12.4 fL (9.4-12.4); Monocytes # 1.1 K/mcL (0.0-1.3); Monocytes % 11.6 %; Neutrophils # 7.4 K/mcL (1.6-8.9); White Blood Count 9.3 K/mcL (4.3-11.1)
[2020-04-19 06:23] LABS: Anisocytosis 1+ (Not Present); Platelet Count 89 K/mcL (140-400); Platelet Estimate Slight Decrease (Normal)
[2020-04-19] MEDS: Metoclopramide 10 MG/2 ML VIAL IVP SCH ×2 (08:03→21:20)
[2020-04-19] MEDS ORDERED: Pantoprazole 40 MG VIAL IVP SCH (09:00)
[2020-04-19 09:09] LABS: Amphetamine Screen,Urine Negative ng/mL (Cutoff=1000); Barbiturate Screen,Urine Negative ng/mL (Cutoff=200); Benzodiazepines Screen,Urine Negative ng/mL (Cutoff=200); Cannabinoid Screen,Urine Negative ng/mL (Cutoff = 50); Cocaine Screen,Urine Negative ng/mL (Cutoff= 300); Phencyclidine Screen,Urine Negative ng/mL (Cutoff=25)
[2020-04-19 09:26] LABS: Opiate Screen,Urine Positive ng/mL (Cutoff=300)
[2020-04-19 10:26] LABS: BUN/Creatinine Ratio 30 (6-26); Blood Urea Nitrogen 31 mg/dL (8-23); Calcium 8.3 mg/dL (8.6-10.3); Carbon Dioxide 15 mEq/L (23-29); Chloride 114 mEq/L (98-107); Glucose 113 mg/dL (70-105); Osmolality,Calculated 309 (280-300); Potassium 3.9 mEq/L (3.5-5.1); Sodium 146 mEq/L (136-145); eGFR For African Americans > 60 (> 60); eGFR For Non-African Americans 53 (> 60)
[2020-04-19] MEDS ORDERED: Ondansetron 4 MG/2 ML VIAL IVP PRN (11:47)
[2020-04-19] MEDS: Megestrol Acetate 400 MG/10 ML UDC PO SCH (12:46)
[2020-04-19] MEDS: cefTRIAXone 2,000 MG in Water for inj. (sterile) 20 ML IVP SCH (17:23)
[2020-04-19] MEDS: carvediloL 25 MG TABLET PO SCH (17:26)
[2020-04-20 03:15] LABS: Hematocrit 27.1 % (35.3-44.9); Hemoglobin 8.6 g/dL (11.5-15.4); Mean Corpuscular HGB Conc 31.7 g/dL (31.6-35.5); Mean Corpuscular Hemoglobin 30.8 pg (28.0-33.3); Mean Corpuscular Volume 97.1 fL (83.0-100.0); Mean Platelet Volume 12.7 fL (9.4-12.4); Red Blood Count 2.79 M/mcL (3.82-4.97); Red Cell Distribution Width 18.3 % (11.5-14.5); White Blood Count 8.5 K/mcL (4.3-11.1)
[2020-04-20 03:17] LABS: Platelet Count 85 K/mcL (140-400)
[2020-04-20 03:30] LABS: BUN/Creatinine Ratio 36 (6-26); Blood Urea Nitrogen 34 mg/dL (8-23); Calcium 8.4 mg/dL (8.6-10.3); Carbon Dioxide 19 mEq/L (23-29); Chloride 116 mEq/L (98-107); Glucose 124 mg/dL (70-105); Osmolality,Calculated 313 (280-300); Potassium 3.2 mEq/L (3.5-5.1); Sodium 147 mEq/L (136-145); eGFR For African Americans > 60 (> 60); eGFR For Non-African Americans 58 (> 60)
[2020-04-20] MEDS ORDERED: Potassium Chloride Elixir 20 MEQ/15 ML UDC PO ONE ×2 (07:19→07:22)
[2020-04-20] MEDS ORDERED: Aspirin 81 MG TAB.CHEW PO SCH (09:00)
[2020-04-20] MEDS ORDERED: *HR* Rivaroxaban 15 MG TABLET PO SCH (09:00)
[2020-04-20] MEDS ORDERED: Perflutren Lipid Microsphere 1.3 ML in 0.9 % Sodium Chloride 8.7 ML IVP PRN (09:08)
[2020-04-20] MEDS: Metoclopramide 10 MG/2 ML VIAL IVP SCH ×2 (09:13→19:54)
[2020-04-20] MEDS: carvediloL 25 MG TABLET PO SCH ×2 (09:13→17:45)
[2020-04-20] MEDS: Megestrol Acetate 400 MG/10 ML UDC PO SCH (09:15)
[2020-04-20] MEDS: Cyanocobalamin (B-12) 1,000 MCG TABLET PO SCH (09:15)
[2020-04-20] MEDS: Folic Acid 1 MG TABLET PO SCH (09:15)
[2020-04-20] MEDS ORDERED: Potassium Chloride 20 MEQ in D5% in Water 1,000 ML IVC SCH (11:00)
[2020-04-20] MEDS ORDERED: Gadolinium Contrast Agent (WT Based) IV PRN (12:25)
[2020-04-20] MEDS: *HR* Heparin 5,000 UNIT/ML VIAL SQ SCH ×2 (17:46→21:09)
[2020-04-21 02:26] LABS: Eosinophils % 0.6 %
[2020-04-21 02:28] LABS: Basophils % 0.4 %; Hematocrit 27.3 % (35.3-44.9); Hemoglobin 8.6 g/dL (11.5-15.4); Lymphocytes # 0.8 K/mcL (0.6-4.6); Mean Corpuscular HGB Conc 31.5 g/dL (31.6-35.5); Mean Corpuscular Hemoglobin 30.7 pg (28.0-33.3); Mean Corpuscular Volume 97.5 fL (83.0-100.0); Mean Platelet Volume 13.5 fL (9.4-12.4); Monocytes # 0.6 K/mcL (0.0-1.3); Monocytes % 8.8 %; Neutrophils # 5.3 K/mcL (1.6-8.9); Nucleated Red Blood Cells 0.3 /100 WBC (0); Red Cell Distribution Width 18.6 % (11.5-14.5); Segmented Neutrophils % 77.2 %; White Blood Count 6.8 K/mcL (4.3-11.1)
[2020-04-21 02:44] LABS: BUN/Creatinine Ratio 42 (6-26); Blood Urea Nitrogen 34 mg/dL (8-23); Calcium 8.2 mg/dL (8.6-10.3); Carbon Dioxide 21 mEq/L (23-29); Chloride 117 mEq/L (98-107); Glucose 136 mg/dL (70-105); Osmolality,Calculated 314 (280-300); Potassium 3.2 mEq/L (3.5-5.1); Sodium 147 mEq/L (136-145); eGFR For African Americans > 60 (> 60); eGFR For Non-African Americans > 60 (> 60)
[2020-04-21 03:13] LABS: Platelet Count 74 K/mcL (140-400)
[2020-04-21] MEDS: *HR* Heparin 5,000 UNIT/ML VIAL SQ SCH (05:29)
[2020-04-21] MEDS: carvediloL 25 MG TABLET PO SCH ×2 (09:13→16:45)
[2020-04-21] MEDS: Cyanocobalamin (B-12) 1,000 MCG TABLET PO SCH (09:13)
[2020-04-21] MEDS: Metoclopramide 10 MG/2 ML VIAL IVP SCH (09:14)
[2020-04-21] MEDS: Megestrol Acetate 400 MG/10 ML UDC PO SCH (09:14)
[2020-04-21] MEDS: Folic Acid 1 MG TABLET PO SCH (09:14)
[2020-04-22 04:26] LABS: Basophils % 0.3 %; Immature Granulocytes % 1.3 % (0-4)
[2020-04-22 04:28] LABS: Eosinophils # 0.3 K/mcL (0.0-0.6); Eosinophils % 4.4 %; Hematocrit 28.5 % (35.3-44.9); Hemoglobin 9.3 g/dL (11.5-15.4); Immature Platelets 11.4 % (1.1-6.1); Lymphocytes # 0.6 K/mcL (0.6-4.6); Lymphocytes % 9.4 %; Mean Corpuscular HGB Conc 32.6 g/dL (31.6-35.5); Mean Corpuscular Hemoglobin 31.5 pg (28.0-33.3); Mean Corpuscular Volume 96.6 fL (83.0-100.0); Mean Platelet Volume 12.9 fL (9.4-12.4); Monocytes # 0.6 K/mcL (0.0-1.3); Monocytes % 9.4 %; Neutrophils # 4.6 K/mcL (1.6-8.9); Nucleated Red Blood Cells 0.3 /100 WBC (0); Red Blood Count 2.95 M/mcL (3.82-4.97); Red Cell Distribution Width 18.6 % (11.5-14.5); Segmented Neutrophils % 75.2 %; White Blood Count 6.1 K/mcL (4.3-11.1)
[2020-04-22 04:29] LABS: Platelet Count 87 K/mcL (140-400)
[2020-04-22 04:45] LABS: Alanine Aminotransferase 13 Units/L (7-52); Albumin 2.9 g/dL (3.5-5.7); Albumin/Globulin Ratio 1.1 (1.1-2.2); Alkaline Phosphatase 42 Units/L (34-104); Aspartate Amino Transferase 22 Units/L (13-39); BUN/Creatinine Ratio 41 (6-26); Bilirubin,Total 0.7 mg/dL (0.3-1.0); Blood Urea Nitrogen 30 mg/dL (8-23); Calcium 8.3 mg/dL (8.6-10.3); Carbon Dioxide 23 mEq/L (23-29); Chloride 117 mEq/L (98-107); Globulin 2.6 g/dL (2.4-3.5); Glucose 123 mg/dL (70-105); Osmolality,Calculated 316 (280-300); Potassium 3.2 mEq/L (3.5-5.1); Sodium 149 mEq/L (136-145); Total Protein 5.5 g/dL (6.4-8.9); eGFR For African Americans > 60 (> 60); eGFR For Non-African Americans > 60 (> 60)
[2020-04-22] MEDS: Megestrol Acetate 400 MG/10 ML UDC PO SCH (09:31)
[2020-04-22] MEDS: carvediloL 25 MG TABLET PO SCH ×2 (09:32→17:43)
[2020-04-22] MEDS: Folic Acid 1 MG TABLET PO SCH (09:32)
[2020-04-22] MEDS: Cyanocobalamin (B-12) 1,000 MCG TABLET PO SCH (09:32)
[2020-04-22] MEDS ORDERED: Potassium Chloride 40 MEQ, Lidocaine 1% 2 ML in 0.9 % Sodium Chloride 500 ML IVPB ONE (11:15)
[2020-04-22 11:41] LABS: Magnesium 1.5 mg/dL (1.6-2.6); Phosphorous 1.2 mg/dL (2.7-4.5)
[2020-04-22 12:18] LABS: Red Blood Cell,CSF 67000 RBC/mcL
[2020-04-22 12:19] LABS: Appearance,CSF Bloody (Clear)
[2020-04-22 12:24] LABS: Glucose,CSF 56 mg/dL (40-70); Total Protein,CSF > 200 mg/dL (15-45)
[2020-04-22 15:14] LABS: Basophils,CSF 0 %; Eosinophils,CSF 0 %; Monocytes,CSF 0 %
[2020-04-23 06:05] LABS: Hematocrit 28.7 % (35.3-44.9); Immature Platelets 9.4 % (1.1-6.1); Mean Corpuscular HGB Conc 31.4 g/dL (31.6-35.5); Mean Corpuscular Hemoglobin 30.6 pg (28.0-33.3); Mean Corpuscular Volume 97.6 fL (83.0-100.0); Mean Platelet Volume 12.6 fL (9.4-12.4); Red Blood Count 2.94 M/mcL (3.82-4.97); Red Cell Distribution Width 18.4 % (11.5-14.5); White Blood Count 6.5 K/mcL (4.3-11.1)
[2020-04-23 08:21] LABS: BUN/Creatinine Ratio 39 (6-26); Blood Urea Nitrogen 26 mg/dL (8-23); Calcium 8.1 mg/dL (8.6-10.3); Carbon Dioxide 22 mEq/L (23-29); Chloride 119 mEq/L (98-107); Glucose 110 mg/dL (70-105); Osmolality,Calculated 317 (280-300); Phosphorous 1.3 mg/dL (2.7-4.5); Potassium 3.5 mEq/L (3.5-5.1); Sodium 151 mEq/L (136-145); eGFR For African Americans > 60 (> 60); eGFR For Non-African Americans > 60 (> 60)
[2020-04-23] MEDS: Megestrol Acetate 400 MG/10 ML UDC PO SCH (08:44)
[2020-04-23] MEDS: carvediloL 25 MG TABLET PO SCH ×2 (08:44→15:00)
[2020-04-23] MEDS: Folic Acid 1 MG TABLET PO SCH (08:44)
[2020-04-23] MEDS: Cyanocobalamin (B-12) 1,000 MCG TABLET PO SCH (08:44)
[2020-04-23] MEDS ORDERED: Potassium Phosphate 44 MEQ in 0.9 % Sodium Chloride 250 ML IVPB ONE (10:06)
[2020-04-23] MEDS: 0.9 % Sodium Chloride 250 ML IVC ONE (10:51)
[2020-04-23 12:15] LABS: BUN/Creatinine Ratio 36 (6-26); Blood Urea Nitrogen 25 mg/dL (8-23); Carbon Dioxide 21 mEq/L (23-29); Chloride 120 mEq/L (98-107); Glucose 112 mg/dL (70-105); Osmolality,Calculated 313 (280-300); Potassium 3.6 mEq/L (3.5-5.1); Sodium 149 mEq/L (136-145); eGFR For African Americans > 60 (> 60); eGFR For Non-African Americans > 60 (> 60)
[2020-04-23] MEDS: Thiamine (B-1) 500 MG in 0.9 % Sodium Chloride 50 ML IVPB SCH ×2 (14:50→21:32)
[2020-04-23] MEDS: 0.9 % Sodium Chloride 1,000 ML IVC SCH (15:59)
[2020-04-23] MEDS: *HR* Metoprolol 5 MG/5 ML VIAL IVP SCH ×2 (17:36→18:53)
[2020-04-23] MEDS ORDERED: *HR* Metoprolol 5 MG/5 ML VIAL IVP SCH (18:00)
[2020-04-23 18:46] LABS: BUN/Creatinine Ratio 40 (6-26); Blood Urea Nitrogen 27 mg/dL (8-23); Calcium 7.8 mg/dL (8.6-10.3); Carbon Dioxide 23 mEq/L (23-29); Chloride 119 mEq/L (98-107); Glucose 106 mg/dL (70-105); Osmolality,Calculated 318 (280-300); Potassium 3.7 mEq/L (3.5-5.1); Sodium 151 mEq/L (136-145); eGFR For African Americans > 60 (> 60); eGFR For Non-African Americans > 60 (> 60)
[2020-04-24] MEDS: *HR* Metoprolol 5 MG/5 ML VIAL IVP SCH ×4 (00:05→18:11)
[2020-04-24] MEDS: 0.9 % Sodium Chloride 1,000 ML IVC SCH (01:49)
[2020-04-24 02:45] LABS: Hematocrit 28.3 % (35.3-44.9); Hemoglobin 8.6 g/dL (11.5-15.4); Immature Platelets 11.1 % (1.1-6.1); Mean Corpuscular HGB Conc 30.4 g/dL (31.6-35.5); Mean Corpuscular Hemoglobin 30.9 pg (28.0-33.3); Mean Corpuscular Volume 101.8 fL (83.0-100.0); Mean Platelet Volume 13.3 fL (9.4-12.4); Red Blood Count 2.78 M/mcL (3.82-4.97); Red Cell Distribution Width 18.6 % (11.5-14.5); White Blood Count 7.9 K/mcL (4.3-11.1)
[2020-04-24 03:05] LABS: BUN/Creatinine Ratio 41 (6-26); Blood Urea Nitrogen 28 mg/dL (8-23); Calcium 7.4 mg/dL (8.6-10.3); Carbon Dioxide 21 mEq/L (23-29); Chloride 122 mEq/L (98-107); Glucose 100 mg/dL (70-105); Magnesium 1.8 mg/dL (1.6-2.6); Osmolality,Calculated 318 (280-300); Phosphorous 1.9 mg/dL (2.7-4.5); Potassium 3.3 mEq/L (3.5-5.1); Sodium 151 mEq/L (136-145); eGFR For African Americans > 60 (> 60); eGFR For Non-African Americans > 60 (> 60)
[2020-04-24] MEDS ORDERED: Potassium Phosphate 44 MEQ in 0.9 % Sodium Chloride 250 ML IVPB ONE (07:17)
[2020-04-24] MEDS ORDERED: D5% in Water 1,000 ML IVC SCH ×2 (07:30→11:56)
[2020-04-24] MEDS: Thiamine (B-1) 500 MG in 0.9 % Sodium Chloride 50 ML IVPB SCH ×3 (09:35→21:54)
[2020-04-24] MEDS: Megestrol Acetate 400 MG/10 ML UDC PO SCH ×2 (09:40→09:44)
[2020-04-24] MEDS: Folic Acid 1 MG TABLET PO SCH ×2 (09:40→09:43)
[2020-04-24] MEDS: Cyanocobalamin (B-12) 1,000 MCG TABLET PO SCH ×2 (09:40→09:44)
[2020-04-24 10:56] LABS: BUN/Creatinine Ratio 36 (6-26); Blood Urea Nitrogen 27 mg/dL (8-23); Calcium 7.8 mg/dL (8.6-10.3); Carbon Dioxide 21 mEq/L (23-29); Chloride 122 mEq/L (98-107); Glucose 97 mg/dL (70-105); Osmolality,Calculated 319 (280-300); Potassium 3.4 mEq/L (3.5-5.1); Sodium 152 mEq/L (136-145); eGFR For African Americans > 60 (> 60); eGFR For Non-African Americans > 60 (> 60)
[2020-04-24 14:54] LABS: BUN/Creatinine Ratio 39 (6-26); Blood Urea Nitrogen 28 mg/dL (8-23); Calcium 7.7 mg/dL (8.6-10.3); Carbon Dioxide 23 mEq/L (23-29); Chloride 122 mEq/L (98-107); Glucose 116 mg/dL (70-105); Osmolality,Calculated 322 (280-300); Potassium 4.1 mEq/L (3.5-5.1); Sodium 153 mEq/L (136-145); eGFR For African Americans > 60 (> 60); eGFR For Non-African Americans > 60 (> 60)
[2020-04-25] MEDS: *HR* Metoprolol 5 MG/5 ML VIAL IVP SCH ×3 (00:06→13:05)
[2020-04-25] MEDS ORDERED: *HR* Succinylcholine 200 MG/10 ML VIAL IVP ONE (08:45)
[2020-04-25] MEDS ORDERED: Lidocaine -MPF 2% 2 ML VIAL ONE (08:45)
[2020-04-25] MEDS ORDERED: Dexamethasone 4 MG/ML VIAL ONE (08:45)
[2020-04-25] MEDS ORDERED: *HR* FentaNYL (PF) 100 MCG/2 ML VIAL ONE (08:45)
[2020-04-25] MEDS ORDERED: Ondansetron 4 MG/2 ML VIAL ONE (08:45)
[2020-04-25] MEDS ORDERED: *HR* Propofol 200 MG/20 ML VIAL IVP ONE (08:46)
[2020-04-25] MEDS ORDERED: *HR* Vasopressin 20 UNIT/ML VIAL ONE (11:25)
[2020-04-25] MEDS ORDERED: *HR* Norepinephrine 4 MG/4 ML VIAL IVC ONE (12:51)
[2020-04-25] MEDS ORDERED: 0.9 % Sodium Chloride 250 ML ONE (12:52)
[2020-04-25] MEDS ORDERED: *HR* FentaNYL (PF) 100 MCG/2 ML VIAL IVP PRN ×3 (12:54→16:32)
[2020-04-25] MEDS ORDERED: *HR* LORazepam 2 MG/ML VIAL IVP PRN ×2 (12:54→13:12)
[2020-04-25] MEDS ORDERED: Norepinephrine 4 MG/254 ML IV.SOLN IVC SCH (13:00)
[2020-04-25] MEDS: Folic Acid 1 MG TABLET PO SCH (13:04)
[2020-04-25] MEDS: Cyanocobalamin (B-12) 1,000 MCG TABLET PO SCH (13:04)
[2020-04-25] MEDS: Thiamine (B-1) 500 MG in 0.9 % Sodium Chloride 50 ML IVPB SCH (13:04)
[2020-04-25] MEDS: Megestrol Acetate 400 MG/10 ML UDC PO SCH (13:04)
[2020-04-25] MEDS: 0.9 % Sodium Chloride 250 ML IVC ONE (13:07)
[2020-04-25] MEDS ORDERED: Atropine 1% Opth Drops 100 DROP/5 ML BOTTLE SL PRN (13:11)
[2020-04-25] MEDS ORDERED: Haloperidol Lactate 5 MG/ML VIAL IVP PRN (13:23)
[2020-04-25] MEDS: Haloperidol Lactate 5 MG/ML VIAL IVP PRN (22:41)
[2020-04-26] MEDS: Haloperidol Lactate 5 MG/ML VIAL IVP PRN ×2 (05:42→15:34)
[2020-04-26] MEDS: Atropine 1% Opth Drops 100 DROP/5 ML BOTTLE SL PRN ×3 (07:50→15:35)
[2020-04-26] MEDS: *HR* LORazepam 2 MG/ML VIAL IVP PRN ×2 (10:01→16:58)
[2020-04-26] MEDS ORDERED: *HR* FentaNYL (PF) 100 MCG/2 ML VIAL IVP PRN (10:36)
[2020-04-26] MEDS ORDERED: Acetaminophen 650 MG RECTAL SUPP RC PRN (10:38)
[2020-04-26] MEDS ORDERED: Scopolamine Patch 1.5 MG PATCH.TD72 TD SCH (10:45)
[2020-04-26] MEDS: Morphine Sulfate Oral CONC 10 MG/0.5 ML ORAL.SYG SL SCH ×3 (11:22→20:23)
[2020-04-27] MEDS: Morphine Sulfate Oral CONC 10 MG/0.5 ML ORAL.SYG SL SCH ×6 (01:29→20:29)
[2020-04-27] MEDS: Atropine 1% Opth Drops 100 DROP/5 ML BOTTLE SL PRN ×3 (09:01→20:32)
[2020-04-27 15:27] LABS: HSV Source CSF
[2020-04-27 18:49] VITALS: BP 56/40
== END 2020-04-27 22:36 | disposition expired | DRG 720 ==
LOC: EMEROOARM 13:59 → 2ANU 13:59 → SUATTDRO 16:32 → 2ANU 17:25 → SUATTDRO 04-21 16:19 → ICNU 04-25 12:53 → 2ANU 04-25 16:59
PROVIDERS: ADMIT Internal Medicine; ATTEND Family Medicine
PROC: IRLUMPX (2020-04-22 11:00)